=== PATIENT | male | born 1980 | race Caucasian/White ===

== ENCOUNTER 2018-02-23 19:13 | Emergency (ER) | payer OTHER ==
[~2018-02-23] VITALS: Ht 177.8 cm; Wt 108.3 kg
[2018-02-23 19:26] VITALS: TEMP 36.8; Ht 177.8 cm; Wt 108.3 kg
[2018-02-23] MEDS ORDERED: ONDANSETRON INJ 2 MG/ML 2 ML VIAL IV STA (19:48)
[2018-02-23] MEDS ORDERED: SODIUM CHLORIDE 0.9% 1000ML 1,000 ML IV STA (19:48)
--- NOTE | 2018-02-23 19:50 | EMERGENCY ROOM VISIT NOTE ---
History Report prepared by Santiago: Sahil Grace Under the Supervision of: Dr. Kurt Claire D.O. First contact with patient: 19:35 Chief Complaint: SHOULDER PAIN Stated Complaint: RT SHOULDER PAIN History of Present Illness The patient is a 38 year old male who presents to the Emergency Room with complaints of constant right sided shoulder and chest pain that began at 0230 this morning, 19 hours ago. The patient states that the pain starts in his right shoulder and radiates into the right armpit and chest. He notes that the pain is worsened with deep inspiration. The pain is also worsened with rotation of the neck. It seems to be improved with certain positions of the left arm. He denies any nausea, vomiting, or abdominal pain. Source of History: patient Onset: 19 hours ago Position: chest (right), shoulder (right) Timing: constant Modifying Factors (Worsening): breathing (deep inhalation), other (rotation of the neck) Modifying Factors (Relieving): other (position of the left arm. ) Associated Symptoms: + chest pain, No nausea, No vomiting, No diarrhea Review of Systems See HPI for pertinent positives & negatives. A total of 10 systems reviewed and were otherwise negative. Past Medical & Surgical Medical Problems: (1) Asthma, Unspecified (2) Lumbago (3) Tobacco Use Disorder Surgical Problems: (1) No significant past surgical history Family History Patient reports no known family medical history. Social History Smoking Status: Current Some Day Smoker Alcohol Use: none Marital Status: Occupation Status: employed Current/Historical Medications Scheduled PRN Ibuprofen (Advil), 600 MG PO BID PRN for Pain Tramadol (Ultram), 1-2 TABS PO Q8 PRN for Pain Allergies Coded Allergies: Oxycodone (Verified Adverse Reaction, Intermediate, itching, 02/23/18) Physical Exam Vital Signs Date Time Temp Pulse Resp B/P (MAP) Pulse Ox O2 Delivery O2 Flow Rate FiO2 02/23/18 22:28 65 18 117/60 96 02/23/18 21:32 75 118/85 95 Room Air 02/23/18 21:16 77 21 117/78 94 Room Air 02/23/18 21:11 121/73 97 Room Air 02/23/18 20:49 68 02/23/18 20:46 128/81 97 Room Air 02/23/18 20:32 95 Room Air 02/23/18 19:48 70 18 120/74 95 Room Air 02/23/18 19:47 76 18 115/74 94 02/23/18 19:26 36.8 71 18 119/72 97 Room Air Physical Exam GENERAL: Patient is awake, alert, and in no acute distress. Patient is resting comfortably and showing no signs of anxiety EYES: The conjunctivae are clear. The pupils are round and reactive. EARS, NOSE, MOUTH AND THROAT: The nose is without any evidence of any deformity. Mucous membranes are moist. Tongue is midline NECK: The neck is nontender and supple. RESPIRATORY: Normal respiratory effort is noted. There is no evidence of wheezing rhonchi or rales to auscultation. CARDIOVASCULAR: Regular rate and rhythm noted. There no murmurs rubs or gallops normal S1 normal S2 GASTROINTESTINAL: The abdomen is soft. Bowel sounds are present in all quadrants. Abdomen is nontender. BACK: No midline tenderness or or step-off noted range of motion in flexion extension as well as rotation no signs of muscle spasm noted. MUSCULOSKELETAL/EXTREMITIES: There is no evidence of gross deformity. Full range of motion is noted in the hips and shoulders. Pain was not reproducible with palpation. SKIN: There is no obvious evidence of any rash. There are no petechiae, pallor or cyanosis noted. NEUROLOGIC: Patient is awake alert and oriented x3. Medical Decision & Procedures ER Provider Diagnostic Interpretation: Radiology results as stated below per my review and radiologist interpretation: Study: CT chest angiography HISTORY: Chest pain FINDINGS: Normal thoracic aorta. Pulmonary vasculature enhances appropriately. No significant mediastinal adenopathy. Lungs are considered clear. No focal infiltrative change. The bony structures appear intact. Vertebral body stature is normal. IMPRESSION: Normal study. Normal thoracic aorta. The lungs are clear. Electronically signed by: Joon Hinton M.D. 02/23/2018 9:17 PM Dictated Date/Time: 02/23/2018 9:12 PM CHEST ONE VIEW PORTABLE CLINICAL HISTORY: EVALUATE RESPIRATORY DISTRESS.DYSPNEA COMPARISON STUDY: No previous studies for comparison. FINDINGS: The bones soft tissues and hemidiaphragms are normal. The cardiomediastinal silhouette is normal. The lungs are clear. The pulmonary vasculature is normal. IMPRESSION: Negative chest. The above report was generated using voice recognition software. It may contain grammatical, syntax or spelling errors. Electronically signed by: Joon Hinton M.D. 02/23/2018 8:06 PM Dictated Date/Time: 02/23/2018 8:06 PM Laboratory Results 02/23/18 19:55 Red Blood Count 4.51, Mean Corpuscular Volume 90.0, Mean Corpuscular Hemoglobin 31.9, Mean Corpuscular Hemoglobin Concent 35.5, Mean Platelet Volume 11.8, Neutrophils (%) (Auto) 57.9, Lymphocytes (%) (Auto) 33.3, Monocytes (%) (Auto) 5.0, Eosinophils (%) (Auto) 3.2, Basophils (%) (Auto) 0.3, Neutrophils # (Auto) 4.53, Lymphocytes # (Auto) 2.60, Monocytes # (Auto) 0.39, Eosinophils # (Auto) 0.25, Basophils # (Auto) 0.02 02/23/18 19:55 Test 02/23/18 19:55 02/23/18 20:06 02/23/18 21:53 White Blood Count 7.81 K/uL (4.8-10.8) Red Blood Count 4.51 M/uL (4.7-6.1) Hemoglobin 14.4 g/dL (14.0-18.0) Hematocrit 40.6 % (42-52) Mean Corpuscular Volume 90.0 fL (80-100) Mean Corpuscular Hemoglobin 31.9 pg (25-34) Mean Corpuscular Hemoglobin Concent 35.5 g/dl (32-36) Platelet Count 173 K/uL (130-400) Mean Platelet Volume 11.8 fL (7.4-10.4) Neutrophils (%) (Auto) 57.9 % Lymphocytes (%) (Auto) 33.3 % Monocytes (%) (Auto) 5.0 % Eosinophils (%) (Auto) 3.2 % Basophils (%) (Auto) 0.3 % Neutrophils # (Auto) 4.53 K/uL (1.4-6.5) Lymphocytes # (Auto) 2.60 K/uL (1.2-3.4) Monocytes # (Auto) 0.39 K/uL (0.11-0.59) Eosinophils # (Auto) 0.25 K/uL (0-0.5) Basophils # (Auto) 0.02 K/uL (0-0.2) RDW Standard Deviation 43.4 fL (36.4-46.3) RDW Coefficient of Variation 13.2 % (11.5-14.5) Immature Granulocyte % (Auto) 0.3 % Immature Granulocyte # (Auto) 0.02 K/uL (0.00-0.02) Prothrombin Time 10.1 SECONDS (9.0-12.0) Prothromb Time International Ratio 1.0 (0.9-1.1) Activated Partial Thromboplast Time 24.5 SECONDS (21.0-31.0) Partial Thromboplastin Ratio 0.9 Anion Gap 7.0 mmol/L (3-11) Est Creatinine Clear Calc Drug Dose 114.3 ml/min Estimated GFR () 100.0 Estimated GFR (Non- 86.3 BUN/Creatinine Ratio 16.8 (10-20) Calcium Level 8.8 mg/dl (8.5-10.1) Total Bilirubin 0.3 mg/dl (0.2-1) Aspartate Amino Transf (AST/SGOT) 38 U/L (15-37) Alanine Aminotransferase (ALT/SGPT) 59 U/L (12-78) Alkaline Phosphatase 104 U/L (45-117) Troponin I < 0.015 ng/ml (0-0.045) Total Protein 7.1 gm/dl (6.4-8.2) Albumin 3.9 gm/dl (3.4-5.0) Globulin 3.2 gm/dl (2.5-4.0) Albumin/Globulin Ratio 1.2 (0.9-2) Bedside D-Dimer 142 ng/mlFEU (0-450) Urine Color YELLOW Urine Appearance CLEAR (CLEAR) Urine pH 5.5 (4.5-7.5) Urine Specific [place] > 1.045 (1.000-1.030) Urine Protein NEG (NEG) Urine Glucose (UA) NEG (NEG) Urine Ketones NEG (NEG) Urine Occult Blood NEG (NEG) Urine Nitrite NEG (NEG) Urine Bilirubin NEG (NEG) Urine Urobilinogen NEG (NEG) Urine Leukocyte Esterase NEG (NEG) Laboratory results per my review. Medications Administered Medications (Trade) Dose Ordered Sig/[place] Route Start Time Stop Time Status Last Admin Dose Admin Fentanyl Citrate (Fentanyl Inj) 50 mcg Q15M PRN IV 02/23/18 20:00 02/23/18 23:59 DC 02/23/18 20:24 50 MCG Ondansetron HCl (Zofran Inj) 4 mg NOW STAT IV 02/23/18 19:48 02/23/18 19:49 DC 02/23/18 20:24 4 MG Sodium Chloride 1,000 ml @ 999 mls/hr Q1H1M STAT IV 02/23/18 19:48 02/23/18 20:48 DC 02/23/18 19:48 999 MLS/HR Tramadol HCl (Ultram Home Pack) 1 homepack UD ONCE PO 02/23/18 22:00 02/23/18 22:01 DC 02/23/18 22:33 1 HOMEPACK ECG Per My Interpretation Indication: chest pain Rate (beats per minute): 70 Rhythm: normal sinus Findings: no acute ischemic change, no ectopy, other (No PVC No MANUEL) Comparison ECG Date: 12/28/2010 Change: no significant change ED Course 1935: The patient was evaluated in room C7. A complete history and physical examination were performed. 1947: Ordered Sodium Chloride 1000 mL @ 999 mL/hr IV, Zofran 4 mg IV. 1999: Ordered Fentanyl 50 mcg IV. 2199: Ordered 1 homepack Tramadol PO. 2212: Upon reevaluation, the patient is resting in bed. I discussed the results and treatment plan with him. He verbalized agreement of the treatment plan. The patient was discharged home. Medical Decision Differential diagnosis: Etiologies such as cardiac ischemia, aortic dissection, pulmonary embolism, pneumonia, pneumothorax, musculoskeletal, infections, pericarditis, myocarditis , esophageal rupture, gastrointestinal, as well as others were entertained. Nursing notes reviewed. Additional history was obtained from the patient's significant other. The patient is a 38-year-old male who presented to the emergency department for an evaluation of chest pain as well as pain between his shoulder blades. His pain was reproducible with some muscle spasm around his right scapula however I was concerned there could be something else going on specifically I was concerned about thoracic aortic pathology. The patient's EKG did not show any change from previous. CT of the chest did not reveal any definite dissection. The patient was treated with pain medication in the emergency department and on subsequent reevaluation was somewhat improved. I discussed patient's laboratory and radiographic studies with him. He was encouraged to rest and avoid any strenuous activity. He is also encouraged to continue all medications as prescribed and return to the emergency department immediately if symptoms change worsen or the need arises. Medication Reconcilliation Current Medication List: was personally reviewed by me Blood Pressure Screening Patient's blood pressure: Normal blood pressure Impression Primary Impression: Anterior chest wall pain Additional Impression: Back pain Scribe Attestation The scribe's documentation has been prepared under my direction and personally reviewed by me in its entirety. I confirm that the note above accurately reflects all work, treatment, procedures, and medical decision making performed by me. Departure Information Dispostion Home / Self-Care Prescriptions Tramadol (Ultram) 50 Mg Tab 1-2 TABS PO Q8 Y for Pain, #20 TAB Prov: Kurt Claire, DO 02/23/18 Referrals Estiven Carpenter M.D. (PCP) Forms HOME CARE DOCUMENTATION FORM, IMPORTANT VISIT INFORMATION Patient Instructions My [facility] Additional Instructions Continue to use Motrin and Tylenol as directed for pain. Rest and avoid any strenuous activity. Call your family doctor to schedule a follow-up appointment. Return to the emergency department immediately if symptoms change worsen or the need arises. Problem Qualifiers Additional Impression: Back pain Back pain location: thoracic back pain Chronicity: acute Back pain laterality: right Qualified Codes: M54.6 - Pain in thoracic spine
[2018-02-23] MEDS ORDERED: FENTANYL CITRATE INJ 50 MCG/1 ML 2 ML VIAL IV PRN (20:00)
[2018-02-23 20:08] LABS: BASO % 0.3 %; BASO ABS # 0.02 K/uL (0-0.2); EOS % 3.2 %; EOS ABS # 0.25 K/uL (0-0.5); HEMATOCRIT 40.6 % (42-52); HEMOGLOBIN 14.4 g/dL (14.0-18.0); IG# 0.02 K/uL (0.00-0.02); LYMPH % 33.3 %; MEAN CORPUSCULAR HEMOGLOBIN 31.9 pg (25-34); MEAN CORPUSCULAR HGB CONC 35.5 g/dl (32-36); MEAN PLATELET VOLUME 11.8 fL (7.4-10.4); MONO ABS # 0.39 K/uL (0.11-0.59); NEUT % 57.9 %; NEUT ABS # 4.53 K/uL (1.4-6.5); PLATELET COUNT 173 K/uL (130-400); RED CELL DISTRIBUTION WIDTH CV 13.2 % (11.5-14.5); RED CELL DISTRIBUTION WIDTH SD 43.4 fL (36.4-46.3); WHITE BLOOD COUNT 7.81 K/uL (4.8-10.8)
--- NOTE | 2018-02-23 20:08 | DIAGNOSTIC IMAGING REPORT ---
CHEST ONE VIEW PORTABLE CLINICAL HISTORY: EVALUATE RESPIRATORY DISTRESS.DYSPNEA COMPARISON STUDY: No previous studies for comparison. FINDINGS: The bones soft tissues and hemidiaphragms are normal. The cardiomediastinal silhouette is normal. The lungs are clear. The pulmonary vasculature is normal. IMPRESSION: Negative chest. The above report was generated using voice recognition software. It may contain grammatical, syntax or spelling errors. Electronically signed by: Joon Hinton M.D. 02/23/2018 8:06 PM Dictated Date/Time: 02/23/2018 8:06 PM
[2018-02-23 20:21] LABS: PTT PATIENT 24.5 SECONDS (21.0-31.0)
[2018-02-23 20:28] LABS: ALBUMIN 3.9 gm/dl (3.4-5.0); ALKALINE PHOSPHATASE 104 U/L (45-117); ALT/SGPT 59 U/L (12-78); AST/SGOT 38 U/L (15-37); BLOOD UREA NITROGEN 18 mg/dl (7-18); CALCIUM 8.8 mg/dl (8.5-10.1); CARBON DIOXIDE 27 mmol/L (21-32); CREATININE 1.09 mg/dl (0.60-1.40); GLUCOSE 131 mg/dl (70-99); POTASSIUM 3.8 mmol/L (3.5-5.1); SODIUM 140 mmol/L (136-145); TOTAL PROTEIN 7.1 gm/dl (6.4-8.2)
[2018-02-23 20:32] VITALS: O2SAT 95
[2018-02-23] MEDS ORDERED: OPTIRAY 320 IV PRN (20:45)
[2018-02-23] MEDS ORDERED: IBUP-1050 PO (21:16)
--- NOTE | 2018-02-23 21:18 | DIAGNOSTIC IMAGING REPORT ---
Study: CT chest angiography HISTORY: Chest pain FINDINGS: Normal thoracic aorta. Pulmonary vasculature enhances appropriately. No significant mediastinal adenopathy. Lungs are considered clear. No focal infiltrative change. The bony structures appear intact. Vertebral body stature is normal. IMPRESSION: Normal study. Normal thoracic aorta. The lungs are clear. Electronically signed by: Joon Hinton M.D. 02/23/2018 9:17 PM Dictated Date/Time: 02/23/2018 9:12 PM
[2018-02-23] MEDS ORDERED: TRAMADOL HCL 50 MG HOME PACK PO ONE (22:00)
[2018-02-23] MEDS ORDERED: TRAM-10 PO (22:11)
[2018-02-23 22:28] VITALS: BP 117/60; PULSE 65; O2SAT 96
== END 2018-02-23 22:28 | disposition home or self-care (01) ==
LOC: C.EDB 19:14 → C.EDC 22:28
DX: R07.89 Other chest pain (principal); M54.6 Pain in thoracic spine; J45.909 Unspecified asthma, uncomplicated; F17.210 Nicotine dependence, cigarettes, uncomplicated; Z88.5 Allergy status to narcotic agent